=== PATIENT | female | born 1950 | race Caucasian/White ===

== ENCOUNTER 2022-01-08 20:53 | Inpatient (IN) ==
[2022-01-08 21:58] LABS: Basophils # 0.1 K/mcL (0.0-0.2); Basophils % 0.4 %; Eosinophils # 0.1 K/mcL (0.0-0.6); Eosinophils % 0.3 %; Hematocrit 38.6 % (35.3-44.9); Hemoglobin 13.5 g/dL (11.5-15.4); Immature Granulocytes % 0.9 % (0-4); Lymphocytes # 1.6 K/mcL (0.6-4.6); Lymphocytes % 9.1 %; Mean Corpuscular Hemoglobin 32.3 pg (28.0-33.3); Mean Corpuscular Volume 92.3 fL (83.0-100.0); Mean Platelet Volume 9.3 fL (9.4-12.4); Monocytes % 5.6 %; Neutrophils # 14.3 K/mcL (1.6-8.9); Platelet Count 383 K/mcL (140-400); Red Blood Count 4.18 M/mcL (3.82-4.97); Red Cell Distribution Width 14.1 % (11.5-14.5); Segmented Neutrophils % 83.7 %; White Blood Count 17.1 K/mcL (4.3-11.1)
[2022-01-08 22:04] LABS: VBG HCO3 25 mEq/L (21-27); VBG PCO2 39 mmHg (41-51); VBG PH 7.41 pH Units (7.32-7.42); VBG PO2 32 mmHg (25-50)
[2022-01-08 22:05] LABS: INR 1.1; Prothrombin Time 12.7 Seconds (9.4-12.1)
[2022-01-08 22:20] LABS: Alanine Aminotransferase 16 Units/L (7-52); Albumin 3.7 g/dL (3.5-5.7); Albumin/Globulin Ratio 1.1 (1.1-2.2); Alkaline Phosphatase 95 Units/L (34-104); Aspartate Amino Transferase 25 Units/L (13-39); BUN/Creatinine Ratio 6 (6-26); Bilirubin,Total 0.7 mg/dL (0.3-1.0); Blood Urea Nitrogen 6 mg/dL (8-23); Calcium 9.5 mg/dL (8.6-10.3); Carbon Dioxide 24 mEq/L (23-29); Chloride 104 mEq/L (98-107); Creatine Kinase 26 Units/L (30-223); Globulin 3.5 g/dL (2.4-3.5); Glucose 149 mg/dL (70-105); Magnesium 1.9 mg/dL (1.6-2.6); Osmolality,Calculated 286 (280-300); Potassium 3.5 mEq/L (3.5-5.1); Sodium 138 mEq/L (136-145); Total Protein 7.2 g/dL (6.4-8.9); Troponin I < 0.03 ng/mL (< 0.04); eGFR For African Americans > 60 (> 60); eGFR For Non-African Americans 59 (> 60)
[2022-01-08] MEDS ORDERED: Isovue-370 500 ML BOTTLE IVP ONE (22:30)
[2022-01-08 22:53] LABS: Adenovirus Not Detected (Not Detect); Bordetella Pertussis Not Detected (Not Detect); Chlamydophila pneumoniae Not Detected (Not Detect); Coronavirus 229E Not Detected (Not Detect); Coronavirus HKU1 Not Detected (Not Detect); Coronavirus NL63 Not Detected (Not Detect); Coronavirus OC43 Not Detected (Not Detect); Human Metapneumovirus Not Detected (Not Detect); Human Rhinovirus/Enterovirus Not Detected (Not Detect); Influenza A Subtype 2009 H1 Not Detected (Not Detect); Influenza B Not Detected (Not Detect); Mycoplasma pneumoniae Not Detected (Not Detect); Parainfluenza Virus 1 Not Detected (Not Detect); Parainfluenza Virus 2 Not Detected (Not Detect); Parainfluenza Virus 3 Not Detected (Not Detect); Parainfluenza Virus 4 Not Detected (Not Detect); Respiratory Syncytial Virus Not Detected (Not Detect); SARS-CoV-2 Not Detected (Not Detect)
[2022-01-08 23:12] LABS: Bacteria,Urine Few per hpf (None-Few); Bilirubin,Urine Negative (Negative); Blood,Urine Negative (Negative); Clarity,Urine Clear (Clear); Color,Urine Light-Yellow (Yellow); Glucose,Urine (UA) Normal (Normal); Ketones,Urine Negative (Negative); Leukocyte Esterase,Urine Moderate (Negative); Nitrite,Urine Negative (Negative); Protein,Urine Trace mg/dL (Neg-Trace); RBC,Urine 0-3 per hpf (0-3); Specific Gravity,Urine > 1.030 (1.010-1.025); Squamous Epithelial Cell,Urine Few per hpf (None-Few); Urobilinogen,Urine Normal (Normal); WBC,Urine 15-30 per hpf (0-3)
[2022-01-09] MEDS ORDERED: cefTRIAXone 1,000 MG in 0.9 % Sodium Chloride 10 ML IVP ONE (00:03)
[2022-01-09] MEDS ORDERED: Ketorolac 30 MG/ML VIAL IVP ONE (01:13)
[2022-01-09] MEDS ORDERED: *HR* HYDROcodone/Acet 5/325 mg TABLET PO ONE (01:13)
[2022-01-09] MEDS ORDERED: Naloxone 0.4 MG/ML INJ IVP PRN (02:11)
[2022-01-09] MEDS ORDERED: Melatonin 3 MG TABLET PO PRN (02:11)
[2022-01-09] MEDS ORDERED: Perflutren Lipid Microsphere 1.3 ML in 0.9 % Sodium Chloride 8.7 ML IVP PRN (02:16)
[2022-01-09] MEDS: *HR* Heparin 5,000 UNIT/ML VIAL SQ SCH ×2 (05:38→17:02)
[2022-01-09 05:47] LABS: Basophils # 0.1 K/mcL (0.0-0.2); Basophils % 0.4 %; Eosinophils # 0.1 K/mcL (0.0-0.6); Eosinophils % 0.9 %; Hematocrit 36.1 % (35.3-44.9); Hemoglobin 12.6 g/dL (11.5-15.4); Immature Granulocytes % 0.7 % (0-4); Lymphocytes # 2.6 K/mcL (0.6-4.6); Lymphocytes % 18.8 %; Mean Corpuscular HGB Conc 34.9 g/dL (31.6-35.5); Mean Corpuscular Hemoglobin 32.3 pg (28.0-33.3); Mean Corpuscular Volume 92.6 fL (83.0-100.0); Mean Platelet Volume 9.2 fL (9.4-12.4); Monocytes % 7.6 %; Neutrophils # 9.8 K/mcL (1.6-8.9); Platelet Count 345 K/mcL (140-400); Red Cell Distribution Width 14.4 % (11.5-14.5); Segmented Neutrophils % 71.6 %; White Blood Count 13.6 K/mcL (4.3-11.1)
[2022-01-09 06:03] LABS: BUN/Creatinine Ratio 7 (6-26); Blood Urea Nitrogen 7 mg/dL (8-23); Carbon Dioxide 28 mEq/L (23-29); Chloride 105 mEq/L (98-107); Glucose 121 mg/dL (70-105); Osmolality,Calculated 289 (280-300); Potassium 3.7 mEq/L (3.5-5.1); Sodium 140 mEq/L (136-145); eGFR For African Americans > 60 (> 60); eGFR For Non-African Americans 52 (> 60)
[2022-01-09] MEDS ORDERED: Morphine Sulfate 2 MG/ML SYRINGE IVP PRN (09:23)
[2022-01-09] MEDS ORDERED: Ondansetron 4 MG/2 ML VIAL IVP PRN (12:44)
[2022-01-09] MEDS ORDERED: Prochlorperazine 10 MG/2 ML VIAL IVP ONE (16:29)
[2022-01-10 01:32] LABS: Basophils % 0.4 %; Eosinophils # 0.2 K/mcL (0.0-0.6); Eosinophils % 1.3 %; Hematocrit 34.6 % (35.3-44.9); Hemoglobin 11.9 g/dL (11.5-15.4); Immature Granulocytes % 0.5 % (0-4); Lymphocytes # 2.7 K/mcL (0.6-4.6); Lymphocytes % 23.5 %; Mean Corpuscular HGB Conc 34.4 g/dL (31.6-35.5); Mean Corpuscular Hemoglobin 32.6 pg (28.0-33.3); Mean Corpuscular Volume 94.8 fL (83.0-100.0); Mean Platelet Volume 9.8 fL (9.4-12.4); Monocytes % 8.4 %; Neutrophils # 7.4 K/mcL (1.6-8.9); Platelet Count 328 K/mcL (140-400); Red Blood Count 3.65 M/mcL (3.82-4.97); Red Cell Distribution Width 14.5 % (11.5-14.5); Segmented Neutrophils % 65.9 %; White Blood Count 11.3 K/mcL (4.3-11.1)
[2022-01-10 01:48] LABS: BUN/Creatinine Ratio 12 (6-26); Blood Urea Nitrogen 10 mg/dL (8-23); Carbon Dioxide 25 mEq/L (23-29); Chloride 105 mEq/L (98-107); Glucose 80 mg/dL (70-105); Osmolality,Calculated 284 (280-300); Potassium 3.9 mEq/L (3.5-5.1); Sodium 138 mEq/L (136-145); eGFR For African Americans > 60 (> 60); eGFR For Non-African Americans > 60 (> 60)
[2022-01-10] MEDS ORDERED: *HR* Meperidine 25 MG/ML SYRINGE IVP PRN (07:16)
[2022-01-10] MEDS ORDERED: *HR* Labetalol 20 MG/4 ML SYRINGE IVP PRN (07:16)
[2022-01-10] MEDS ORDERED: Ondansetron 4 MG/2 ML VIAL IVP PRN (07:16)
[2022-01-10] MEDS ORDERED: *HR* OxyCODONE Immed Rel 5 MG TABLET PO PRN (07:16)
[2022-01-10] MEDS ORDERED: Ipratropium Neb 0.5 MG NEBULIZER IH PRN (07:16)
[2022-01-10] MEDS ORDERED: *HR* HYDROmorphone PF 0.5 MG/0.5 ML SYRINGE IVP PRN (07:16)
[2022-01-10] MEDS ORDERED: Albuterol 2.5 MG/3 ML NEBULIZER IH PRN (07:16)
[2022-01-10] MEDS ORDERED: *HR* FentaNYL (PF) 100 MCG/2 ML VIAL ONE (07:24)
[2022-01-10] MEDS ORDERED: Lidocaine -MPF 2% 5 ML VIAL ONE (07:24)
[2022-01-10] MEDS ORDERED: *HR* Propofol 200 MG/20 ML VIAL IVP ONE (07:24)
[2022-01-10] MEDS ORDERED: *HR* Midazolam HCl 2 MG/2 ML VIAL ONE (07:24)
[2022-01-10] MEDS ORDERED: CeFAZolin Syr 2,000MG/20 ML 2,000 MG/20 ML SYRINGE IVPB ONE (07:26)
[2022-01-10] MEDS ORDERED: Ringers Solution, Lactated 1,000 ML IVC SCH (07:30)
[2022-01-10] MEDS: *HR* Heparin 5,000 UNIT/ML VIAL SQ SCH ×2 (07:34→17:16)
[2022-01-10] MEDS ORDERED: Ropivacaine/PF 0.5% 30 ML VIAL ONE (07:34)
[2022-01-10] MEDS ORDERED: ROPIVACAINE/PF/NS 0.25% 1 EACH SYRINGE INTRAART ONE (07:35)
[2022-01-10] MEDS ORDERED: EPHEDrine 50 MG/ML VIAL ONE (09:17)
[2022-01-10] MEDS ORDERED: Naloxone 0.4 MG/ML INJ IVP PRN (12:06)
[2022-01-10] MEDS ORDERED: Morphine Sulfate 2 MG/ML SYRINGE IVP PRN (12:06)
[2022-01-10] MEDS: Ringers Solution, Lactated 1,000 ML IVC SCH (12:21)
[2022-01-11 03:25] LABS: Basophils % 0.1 %; Hematocrit 37.9 % (35.3-44.9); Hemoglobin 12.9 g/dL (11.5-15.4); Lymphocytes # 1.6 K/mcL (0.6-4.6); Lymphocytes % 6.7 %; Mean Corpuscular Hemoglobin 32.3 pg (28.0-33.3); Monocytes # 0.7 K/mcL (0.0-1.3); Neutrophils # 21.8 K/mcL (1.6-8.9); Platelet Count 293 K/mcL (140-400); Red Blood Count 3.99 M/mcL (3.82-4.97); Red Cell Distribution Width 14.1 % (11.5-14.5); Segmented Neutrophils % 89.2 %
[2022-01-11 03:26] LABS: White Blood Count 24.4 K/mcL (4.3-11.1)
[2022-01-11 03:32] LABS: BUN/Creatinine Ratio 14 (6-26); Blood Urea Nitrogen 11 mg/dL (8-23); Calcium 9.1 mg/dL (8.6-10.3); Carbon Dioxide 25 mEq/L (23-29); Chloride 106 mEq/L (98-107); Glucose 146 mg/dL (70-105); Osmolality,Calculated 286 (280-300); Potassium 4.4 mEq/L (3.5-5.1); Sodium 137 mEq/L (136-145); eGFR For African Americans > 60 (> 60); eGFR For Non-African Americans > 60 (> 60)
[2022-01-11] MEDS: *HR* Heparin 5,000 UNIT/ML VIAL SQ SCH ×2 (06:04→19:26)
[2022-01-11] MEDS ORDERED: cefTRIAXone 1,000 MG in 0.9 % Sodium Chloride 10 ML IVP ONE (07:58)
[2022-01-11] MEDS: Ringers Solution, Lactated 1,000 ML IVC SCH (19:27)
[2022-01-12 03:15] LABS: Basophils # 0.1 K/mcL (0.0-0.2); Basophils % 0.3 %; Eosinophils % 0.2 %; Hematocrit 34.7 % (35.3-44.9); Hemoglobin 11.9 g/dL (11.5-15.4); Immature Granulocytes % 0.9 % (0-4); Lymphocytes # 3.3 K/mcL (0.6-4.6); Lymphocytes % 14.9 %; Mean Corpuscular HGB Conc 34.3 g/dL (31.6-35.5); Mean Corpuscular Hemoglobin 33.3 pg (28.0-33.3); Mean Corpuscular Volume 97.2 fL (83.0-100.0); Mean Platelet Volume 10.4 fL (9.4-12.4); Monocytes # 1.2 K/mcL (0.0-1.3); Monocytes % 5.4 %; Neutrophils # 17.3 K/mcL (1.6-8.9); Platelet Count 291 K/mcL (140-400); Red Blood Count 3.57 M/mcL (3.82-4.97); Red Cell Distribution Width 14.2 % (11.5-14.5); Segmented Neutrophils % 78.3 %; White Blood Count 22.1 K/mcL (4.3-11.1)
[2022-01-12 03:31] LABS: BUN/Creatinine Ratio 18 (6-26); Blood Urea Nitrogen 16 mg/dL (8-23); Calcium 8.9 mg/dL (8.6-10.3); Carbon Dioxide 30 mEq/L (23-29); Chloride 105 mEq/L (98-107); Glucose 107 mg/dL (70-105); Osmolality,Calculated 294 (280-300); Sodium 141 mEq/L (136-145); eGFR For African Americans > 60 (> 60); eGFR For Non-African Americans > 60 (> 60)
[2022-01-12] MEDS: *HR* Heparin 5,000 UNIT/ML VIAL SQ SCH ×2 (05:29→16:20)
[2022-01-12] MEDS: cefTRIAXone 1,000 MG in 0.9 % Sodium Chloride 10 ML IVP SCH (07:42)
[2022-01-12 08:21] LABS: Magnesium 2.1 mg/dL (1.6-2.6)
[2022-01-12] MEDS: Ringers Solution, Lactated 1,000 ML IVC SCH (09:33)
[2022-01-12] MEDS: Melatonin 3 MG TABLET PO PRN (20:38)
[2022-01-13 04:33] LABS: Basophils # 0.1 K/mcL (0.0-0.2); Basophils % 0.8 %; Eosinophils # 0.2 K/mcL (0.0-0.6); Eosinophils % 1.4 %; Hematocrit 35.3 % (35.3-44.9); Hemoglobin 12.1 g/dL (11.5-15.4); Immature Granulocytes % 1.1 % (0-4); Lymphocytes # 3.6 K/mcL (0.6-4.6); Lymphocytes % 28.5 %; Mean Corpuscular HGB Conc 34.3 g/dL (31.6-35.5); Mean Corpuscular Hemoglobin 33.3 pg (28.0-33.3); Mean Corpuscular Volume 97.2 fL (83.0-100.0); Monocytes % 8.1 %; Neutrophils # 7.7 K/mcL (1.6-8.9); Platelet Count 290 K/mcL (140-400); Red Blood Count 3.63 M/mcL (3.82-4.97); Red Cell Distribution Width 14.6 % (11.5-14.5); Segmented Neutrophils % 60.1 %; White Blood Count 12.8 K/mcL (4.3-11.1)
[2022-01-13 04:53] LABS: BUN/Creatinine Ratio 20 (6-26); Blood Urea Nitrogen 16 mg/dL (8-23); Calcium 8.7 mg/dL (8.6-10.3); Carbon Dioxide 27 mEq/L (23-29); Chloride 106 mEq/L (98-107); Glucose 88 mg/dL (70-105); Osmolality,Calculated 291 (280-300); Potassium 3.8 mEq/L (3.5-5.1); Sodium 140 mEq/L (136-145); eGFR For African Americans > 60 (> 60); eGFR For Non-African Americans > 60 (> 60)
[2022-01-13] MEDS: *HR* Heparin 5,000 UNIT/ML VIAL SQ SCH ×2 (05:53→16:43)
[2022-01-13] MEDS: cefTRIAXone 1,000 MG in 0.9 % Sodium Chloride 10 ML IVP SCH ×3 (09:06→12:20)
[2022-01-13] MEDS: Ondansetron 4 MG/2 ML VIAL IVP PRN ×2 (09:06→20:57)
[2022-01-13] MEDS ORDERED: Ondansetron ODT 4 MG TAB.RAPDIS SL ONE (09:21)
[2022-01-13] MEDS: Melatonin 3 MG TABLET PO PRN (20:57)
[2022-01-14 05:30] LABS: Basophils # 0.1 K/mcL (0.0-0.2); Basophils % 0.4 %; Eosinophils # 0.3 K/mcL (0.0-0.6); Eosinophils % 2.2 %; Hematocrit 37.9 % (35.3-44.9); Hemoglobin 12.2 g/dL (11.5-15.4); Immature Granulocytes % 1.4 % (0-4); Lymphocytes # 3.3 K/mcL (0.6-4.6); Lymphocytes % 24.6 %; Mean Corpuscular HGB Conc 32.2 g/dL (31.6-35.5); Mean Corpuscular Hemoglobin 31.7 pg (28.0-33.3); Mean Corpuscular Volume 98.4 fL (83.0-100.0); Mean Platelet Volume 10.3 fL (9.4-12.4); Monocytes # 0.9 K/mcL (0.0-1.3); Monocytes % 6.6 %; Neutrophils # 8.7 K/mcL (1.6-8.9); Platelet Count 282 K/mcL (140-400); Red Blood Count 3.85 M/mcL (3.82-4.97); Red Cell Distribution Width 14.4 % (11.5-14.5); Segmented Neutrophils % 64.8 %; White Blood Count 13.4 K/mcL (4.3-11.1)
[2022-01-14 05:37] LABS: BUN/Creatinine Ratio 18 (6-26); Blood Urea Nitrogen 16 mg/dL (8-23); Calcium 8.7 mg/dL (8.6-10.3); Carbon Dioxide 30 mEq/L (23-29); Chloride 104 mEq/L (98-107); Glucose 92 mg/dL (70-105); Osmolality,Calculated 291 (280-300); Potassium 3.7 mEq/L (3.5-5.1); Sodium 140 mEq/L (136-145); eGFR For African Americans > 60 (> 60); eGFR For Non-African Americans > 60 (> 60)
[2022-01-14] MEDS: *HR* Heparin 5,000 UNIT/ML VIAL SQ SCH (05:46)
[2022-01-14 07:14] VITALS: BP 104/63; PULSE 66; TEMP 97.9; O2SAT 94
[2022-01-14] MEDS: cefTRIAXone 1,000 MG in 0.9 % Sodium Chloride 10 ML IVP SCH (09:44)
[2022-01-14 11:40] LABS: Influenza A PCR Negative (Negative); Influenza B PCR Negative (Negative); Resp. Syncytial Virus PCR Negative (Negative)
[2022-01-14 12:05] LABS: SARS-CoV-2 by PCR (In House) Negative (Negative)
== END 2022-01-14 12:58 | DRG 493 ==
LOC: EMEROOARM 20:53 → 3BNU 20:53 → SUATTDRO 01-09 01:01 → 3BNU 01-09 01:30 → SUATTDRO 01-11 14:29
PROVIDERS: ADMIT Nurse Practitioner; ATTEND Internal Medicine